=== PATIENT | male | born 1955 ===

== ENCOUNTER 2016-11-21 07:30 | Day surgery (SDC) | payer SELFPAY ==
[2016-11-21 08:07] VITALS: BMI 26.6
[2016-11-21] MEDS ORDERED: Lactated Ringer's 500 ML IV ONE (08:12)
[2016-11-21] MEDS ORDERED: Propofol 10 mg/ml Inj (20 ML) ONE (09:04)
[2016-11-21] MEDS ORDERED: Midazolam 2 MG/2 ML VIAL ONE (09:04)
[2016-11-21] MEDS: cefTRIAXone (Rocephin) 1 gm Inj ONE (09:10)
[2016-11-21 09:46] VITALS: BP 122/52; PULSE 70; RESP 16; TEMP 96.8; O2SAT 98
--- NOTE | 2016-11-21 10:12 | OP ---
PROCEDURE DATE: 11/21/2016 PREOPERATIVE DIAGNOSES: Benign prostatic hypertrophy with elevated prostate-specific antigen. POSTOPERATIVE DIAGNOSES: Benign prostatic hypertrophy with elevated prostate-specific antigen. PROCEDURE PERFORMED: ____ biopsy. The patient was placed on the operating table in the left lateral decubitus. He was given IV sedatio n, after which, the transrectal ultrasound probe was inserted. Initial measurements of the prostate revealed a 47-gram gland. Following this, a segment of the prostate into left and right sides and se cured 6 biopsies from the left, 6 from the right individually identified. At the end of the procedur e, I removed the ultrasound probe, but there was minimal bleeding, which was just on the probe itself , and it was wiped clean. The patient then was taken from the operating room in good condition. Elsie Mtz MD cc: 48 TT: 11/21/2016 10:11:26 jn
--- NOTE | 2016-11-21 10:13 | DS ---
Again, the patient was admitted today for elective prostate biopsy. He underwent an uneventful proce dure. Postoperatively, he will be discharged home today with a prescription for oral antibiotics. Negra e will be given an appointment date to come to my office to review the analyses. Once all of this is done, the patient will be discharged home today. Elsie Mtz MD cc: 48 TT: 11/21/2016 10:12:44 jn
--- NOTE | 2016-11-21 11:40 | US ---
PROCEDURE: Transrectal prostate biopsy HISTORY: PSAelevated COMPARISON: None available. TECHNIQUE: Standard protocol for this study/examination. FINDINGS: Documentation of transrectal prostate biopsy noted. Transrectal prostate volume 48.9 cc. PPSA 54. IMPRESSION: Ultrasound documentation of transrectal prostate biopsy.
== END 2016-11-21 12:00 | disposition home or self-care (01) ==
LOC: H.ENDO 07:30
PROVIDERS: ATTEND Urology
DX: N40.0 Benign prostatic hyperplasia without lower urinary tract symptoms (principal); E78.5 Hyperlipidemia, unspecified; I10 Essential (primary) hypertension